=== PATIENT | male | born 1990 | race Caucasian/White ===

== ENCOUNTER 2020-03-17 16:14 | Emergency (ER) | payer MEDICAID ==
[~2020-03-17] VITALS: Ht 180.3 cm; Wt 66.8 kg
[2020-03-17 16:20] VITALS: BP 134/80; Ht 180.3 cm; Wt 66.8 kg
[2020-03-17] MEDS ORDERED: ADDERALL 5 MG TA5 M1 (16:21)
== END 2020-03-17 18:46 | disposition left against medical advice (07) ==
LOC: D.ER 16:14
DX: R07.0 Pain in throat (principal); R13.10 Dysphagia, unspecified; M54.2 Cervicalgia